=== PATIENT | male | born 1975 | race Caucasian/White ===

== ENCOUNTER → 2025-04-23 14:55 | Outpatient (CLI) | payer OTHER, SELFPAY ==
[2025-04-26 22:08] LABS: ANA Screen, IFA Negative (.)
== END ==
PROVIDERS: Family Provider Family Medicine; PCP Family Medicine; Referring Provider Dermatology; Visit Provider Dermatology
DX: L30.9 Dermatitis, unspecified (principal)
CPT/HCPCS: 36415; 85651; 86038; 86140; 86430

== ENCOUNTER 2025-08-24 20:04 | Inpatient (IN) | payer OTHER, SELFPAY ==
[2025-08-24] VITALS (12 sets, daily range): BP systolic 118–144; BP diastolic 60–83; PULSE 60–83; RESP 16–23; TEMP 36.5; O2SAT 99–100; BMI 27.8
--- NOTE | 2025-08-24 20:17 | DI.RAD.S_ITS ---
PROCEDURE: XR CHEST 1V INDICATIONS: suspected sepsis TECHNIQUE: One view of the chest was acquired. COMPARISON: None. FINDINGS: Surgical changes and devices: None. Lungs and pleura: Lungs are clear. No pleural effusions or pneumothorax. Mediastinum: Mediastinal contours appear normal. Heart size is normal. Bones and chest wall: No suspicious bony lesions. Overlying soft tissues appear unremarkable. IMPRESSION: No acute cardiopulmonary abnormality is seen. Dictated by: Lito Trujillo M.D. on 08/24/2025 at 21:00 Approved by: Lito Trujillo M.D. on 08/24/2025 at 21:00
[2025-08-24] MEDS: SODIUM CHLORIDE 0.9% 1,000 ML 1000 ML IV (20:50)
[2025-08-24 21:04] LABS: INR 1.0 (0.9-1.3); Prothrombin Time 11.8 SECONDS (9.4-12.5)
[2025-08-24 21:06] LABS: PTT Partial Thromboplastin Tim 27 SECONDS (25.1-36.5)
[2025-08-24 21:09] LABS: Lactate (Lactic Acid) 0.6 mmol/L (0.7-2.1)
[2025-08-24 21:10] LABS: Alanine Aminotransferase 115 IU/L (<50); Albumin 3.9 g/dL (3.5-5.0); Albumin Globulin Ratio 1.3 (1.0-2.8); Alkaline Phosphatase 156 U/L (38-126); Blood Urea Nitrogen 8 mg/dL (9-20); Calcium 8.4 mg/dL (8.4-10.2); Carbon Dioxide 24 mmol/L (22-32); Chloride 86 mmol/L (98-107); Estimated Glomerular Filt Rate > 60 mL/min (>60); Globulin 3.0 g/dL (1.7-4.1); Glucose 112 mg/dL (70-99); HEMOLYSIS < 15 (0-50); Lipase 48 U/L (23-300); Potassium 3.4 mmol/L (3.4-5.1); Total Protein 6.9 g/dL (6.3-8.2)
[2025-08-24 21:12] LABS: Culture Indicated Urine Cult Not Indicated
[2025-08-24 21:14] LABS: Sodium 118 mmol/L (137-145)
[2025-08-24 21:27] LABS: Procalcitonin 0.564 ng/mL (<0.5)
--- NOTE | 2025-08-24 21:31 | EKG_ITS ---
[address] [address] Test Date: 2025-08-24 Pat Name: Adonis Gil Department: Room: Gender: Male [employer]: TAMMIE : 1975 Requested By: Order Number: [id number] Reading MD: Leland Pickett Measurements Intervals [place] Rate: 64 P: 55 [place]: 164 QRS: 23 QRSD: 100 T: 17 QT: 458 QTc: 472 Interpretive Statements Normal sinus rhythm Electronically Signed On 08-26-2025 7:33:46 PST by Leland Pickett
--- NOTE | 2025-08-24 21:48 | ED.GENADULT ---
HPI - General Adult General Chief complaint: Fever Stated complaint: fever x 5 days Time Seen by Provider: 08/24/25 20:30 Source: patient Mode of arrival: Ambulatory History of Present Illness HPI narrative: 50-year-old male with 5 days duration of generalized muscle aches, temperature 103? at home measured four days ago, temp 101.8 earlier today, taking occasional Tylenol. Denies regular/heavy alcohol use. Feels increasing generalized malaise, body aches, loss of appetite. Did home COVID tests multiple times which have been negative. Denies any cough or chest pain or shortness of breath. Denies abdominal pain, nausea, vomiting, diarrhea, black stools or red stools, mucoid stools. No recent exposure to antibiotics known. No recent exposure to persons with respiratory or GI or other acute infectious illnesses. No skin rashes. No changes in medication/new medications. Had headache prior, seems improved now. No neck pain or photophobia symptoms. No joint pain or swelling symptoms. Related Data Home Medications ?Medication ?Instructions ?Recorded ?Confirmed allopurinol 100 mg tablet 100 mg PO DAILY 08/24/25 08/24/25 amlodipine 5 mg tablet 5 mg PO DAILY 08/24/25 08/24/25 lisinopril PO DAILY 08/24/25 metoprolol succinate 25 mg 25 mg PO BID 08/24/25 08/24/25 tablet,extended release 24 hr Allergies Allergy/AdvReac Type Severity Reaction Status Date / Time No Known Drug Allergies Allergy Verified 08/24/25 20:36 Patient History Social History Smoking Status: Former smoker Smoking Status: Former smoker Exam Narrative Exam Narrative: GENERAL: Well-developed patient, in mild distress. HEAD: Atraumatic. Normocephalic. EYES: Pupils equal round and reactive. Extraocular motions intact. No scleral icterus. No injection or drainage. ENT: Nose without bleeding, purulent drainage. Throat without erythema, tonsillar hypertrophy or exudate. Airway patent. NECK: Trachea midline. Non tender CARDIOVASCULAR: Regular rate and rhythm without murmurs, gallops, or rubs. RESPIRATORY: Clear to auscultation. Breath sounds equal bilaterally. No wheezes, rales, or rhonchi. GASTROINTESTINAL: Abdomen soft, non-tender, nondistended. EXTREMITIES: No edema or joint tenderness. BACK: Nontender without deformity or crepitance. No flank tenderness. NEURO: AOx3. Motor functions grossly nonfocal. SKIN: No rash or erythema of visible areas Initial Vital Signs Initial Vital Signs: Vital Signs Temperature 97.7 F 08/24/25 20:11 Pulse Rate 72 08/24/25 20:11 Respiratory Rate 16 08/24/25 20:11 Blood Pressure 144/83 H 08/24/25 20:11 Pulse Oximetry 99 08/24/25 20:11 Oxygen Delivery Method Room Air 08/24/25 20:11 Course Orders Ordered: ED Orders 08/24/25 20:17 XR chest 1V Stat EKG-12 Lead Stat RT Consult Eval and Treat NOW 08/24/25 20:35 Blood Culture Stat Complete Blood Count AUTO DIFF Stat Comprehensive Metabolic Panel Stat Lactate (Lactic Acid) Stat Lipase Stat Monotest Stat PTT Partial Thromboplastin Emre Stat Procalcitonin Stat Prothrombin Time INR Stat TSH [Thyroid Stimulating Hormone] Stat Urine Culture Stat Urine Microscopic Stat 08/24/25 20:50 Respiratory Panel (Film Array) Stat 08/24/25 21:49 Urinalysis and Microscopic Stat 08/24/25 22:10 Osmolality Urine Stat 08/24/25 22:35 Osmolality, Serum Stat 08/24/25 23:42 CT abdomen pelvis w con Stat 08/24/25 23:47 Hepatitis Acute Panel Stat 08/24/25 23:48 Acetaminophen Stat 08/24/25 23:55 Bilirubin Direct Stat 08/24/25 23:56 CMP [Comprehensive Metabolic Panel] Stat 08/25/25 00:22 Ethanol (ETOH) Stat GGT [Gamma Glutamyl Transpeptidase] Stat Ondansetron HCl (Ondansetron 4 Mg/2 Ml Inj) 4 mg IV NOW PRN PRN Reason: Nausea And Vomiting Ondansetron HCl (Ondansetron 4 Mg Odt) 4 mg PO NOW PRN PRN Reason: Nausea And Vomiting Discontinued Medications Atropine Sulfate (Atropine 1 Mg/10 Ml Syringe) 1 mg IV NOW ONE Stop: 08/25/25 01:02 PST Last Admin: 08/25/25 01:05 PST Dose: Not Given Documented By: AB Hydromorphone HCl (Hydromorphone Hcl 0.5 Mg/0.5 Ml Syringe) 0.5 mg IV NOW ONE Stop: 08/25/25 02:58 Last Admin: 08/25/25 03:00 Dose: 0.5 mg Documented By: Sodium Chloride (Normal Saline 0.9%) 1,000 mls @ 1,000 mls/hr IV BOLUS ONE Stop: 08/24/25 21:15 Last Infusion: 08/24/25 21:49 Dose: Infused Documented By: Admin: 08/24/25 20:50 Dose: 1,000 mls/hr Documented By: AB Dopamine HCl/Dextrose (Dopamine 400 Mg-D5w 250 Ml) 400 mg in 250 mls @ 17.435 mls/hr IV TITRATE ZARINA; Protocol Ketorolac Tromethamine (Ketorolac 30 Mg/Ml Vial) 15 mg IV NOW ONE Stop: 08/25/25 01:12 PST Last Admin: 08/25/25 01:17 PST Dose: 15 mg Documented By: Potassium Chloride (Potassium Chloride 20 Meq/15 Ml Udc) 40 meq PO NOW ONE Stop: 08/25/25 01:50 PST Last Admin: 08/25/25 01:09 PST Dose: 40 meq Documented By: Vital Signs Vital signs: Vital Signs - 8 hr 08/24/25 20:47 08/24/25 20:48 08/24/25 20:48 Pulse Rate 61 60 Respiratory Rate Blood Pressure 125/71 Pulse Oximetry 100 100 Oxygen Delivery Method 08/24/25 21:00 08/24/25 21:00 08/24/25 21:30 Pulse Rate 63 61 Respiratory Rate 16 23 Blood Pressure 118/60 Pulse Oximetry 99 100 Oxygen Delivery Method Room Air 08/24/25 21:30 08/24/25 21:39 08/24/25 21:39 Pulse Rate 66 Respiratory Rate 19 Blood Pressure 126/71 126/74 Pulse Oximetry 100 Oxygen Delivery Method 08/24/25 22:00 08/24/25 22:00 08/24/25 22:13 Pulse Rate 76 Respiratory Rate 18 Blood Pressure 130/67 134/74 Pulse Oximetry 100 Oxygen Delivery Method 08/24/25 22:13 08/24/25 22:30 08/24/25 22:30 Pulse Rate 79 78 Respiratory Rate 18 17 Blood Pressure 123/63 Pulse Oximetry 99 100 Oxygen Delivery Method 08/24/25 23:00 08/24/25 23:00 08/24/25 23:30 Pulse Rate 83 82 Respiratory Rate 20 Blood Pressure 122/64 Pulse Oximetry 100 100 Oxygen Delivery Method 08/24/25 23:31 08/24/25 23:31 08/25/25 00:11 Pulse Rate 82 87 Respiratory Rate Blood Pressure 122/64 Pulse Oximetry 99 99 Oxygen Delivery Method 08/25/25 00:12 08/25/25 00:12 08/25/25 00:30 Pulse Rate 88 90 Respiratory Rate 16 Blood Pressure 159/72 H Pulse Oximetry 99 98 Oxygen Delivery Method 08/25/25 00:31 08/25/25 00:31 08/25/25 01:20 PST Pulse Rate 91 H 82 Respiratory Rate 20 23 Blood Pressure 132/69 Pulse Oximetry 98 95 Oxygen Delivery Method Room Air 08/25/25 01:25 PST 08/25/25 01:30 PST Pulse Rate 82 84 Respiratory Rate 6 L 6 L Blood Pressure 122/63 117/63 Pulse Oximetry 97 97 Oxygen Delivery Method Room Air Room Air Medical Decision Making Lab Data Lab results reviewed: Yes I reviewed the patient's lab results. Lab results narrative: White blood cell count 5800, hemoglobin 12.1, platelets 91,000. Glucose 112. BUN 8 with creatinine 0.61 normal. Serum CO2 24 and potassium 3.4 normal. Sodium 118 quite low, with no comparison studies. Total bilirubin 4.0, direct bilirubin pending, alkaline phosphatase 156, AST 94, ALT 115. Lipase 48 normal. Urine dip negative. [place] screen negative. Hepatitis acute viral panel pending (send out). Lactate 0.6 not elevated. Procalcitonin 0.56 elevated. TSH normal. Urine osmolality pending. Serum osmolality pending. Respiratory pathogens panel negative. 08/24/25 20:35 08/25/25 00:22 Labs: Lab Results 08/24/25 08/24/25 08/25/25 Range/Units 20:35 20:50 00:22 WBC 5.7 (4.5-11.0) X10^3/uL RBC 4.00 L (4.5-5.9) X10^6/uL Hgb 12.1 L (13.5-17.5) g/dL Hct 34.1 L (41-53) % MCV 85.5 (80-100) fL MCH 30.3 (26-34) PG MCHC 35.5 (30-36) % RDW 13.2 (11.6-14.8) % Plt Count 91 L (150-400) X10^3/uL Neut % (Auto) 78.6 H (50-75) % Lymph % (Auto) 7.3 L (25-40) % [place] % (Auto) 12.8 (3-14) % Eos % (Auto) 0.9 L (2-4) % Baso % (Auto) 0.4 (0-2) % Neut # (Auto) 4500 (7118-1332) /uL Lymph # (Auto) 400 L (3795-2355) /uL [place] # (Auto) 700 (0-900) /uL Eos # (Auto) 0 (0-450) /uL Baso # (Auto) 0 (0-100) /uL PT 11.8 (9.4-12.5) SECONDS INR 1.0 (0.9-1.3) APTT 27 (25.1-36.5) SECONDS Sodium 118 L* 128 L D (137-145) mmol/L Potassium 3.4 3.1 L (3.4-5.1) mmol/L Chloride 86 L 95 L (98-107) mmol/L Carbon Dioxide 24 23 (22-32) mmol/L BUN 8 L 7 L (9-20) mg/dL Creatinine 0.61 L 0.61 L (0.66-1.25) mg/dL Estimated GFR > 60 > 60 (>60) mL/min BUN/Creatinine Ratio 13.1 11.5 (6-22) Glucose 112 H 112 H (70-99) mg/dL Serum Osmolality Cancelled Lactate 0.6 L (0.7-2.1) mmol/L Calcium 8.4 8.3 L (8.4-10.2) mg/dL Total Bilirubin 4.0 H 4.5 H (0.2-1.3) mg/dL Direct Bilirubin 3.2 H (0.0-0.4) mg/dL GGT 228 H (15-73) U/L AST 94 H 80 H (17-59) IU/L ALT 115 H 107 H (<50) IU/L Alkaline Phosphatase 156 H 160 H (38-126) U/L Total Protein 6.9 6.6 (6.3-8.2) g/dL Albumin 3.9 3.7 (3.5-5.0) g/dL Globulin 3.0 2.9 (1.7-4.1) g/dL Albumin/Globulin Ratio 1.3 1.3 (1.0-2.8) Lipase 48 (23-300) U/L Procalcitonin 0.564 H (<0.5) ng/mL TSH 1.08 (0.47-4.68) uIU/mL Urine RBC 0-1/hpf (0-5/HPF) Urine WBC None seen (0-5/HPF) Ur Squamous Epith Cells None seen (0-5/HPF) Urine Bacteria None seen (None) Ur Culture Indicated? Cult not indicated Vol Urine Centrifuged 10ml (spun) Acetaminophen < 10 (10-30) ug/mL Ethyl Alcohol < 10 (<10) mg/dL Chlamy pneumoniae PCR Not detected (Not Detect) Adenovirus (PCR) Not detected (Not Detect) B. pertussis DNA (PCR) Not detected (Not Detect) B.parapertussis DNA PCR Not detected (Not Detecte) Coronavirus OC43 (PCR) Not detected (Not Detect) Coronavirus HKU1 (PCR) Not detected (Not Detect) Coronavirus 229E (PCR) Not detected (Not Detect) SARS-CoV-2 (PCR) Not detected (Not Detecte) Coronavirus NL63 (PCR) Not detected (Not Detect) Monoscreen Negative (Negative) Human Metapneumovir PCR Not detected (Not Detect) Influenza Type A (PCR) Not detected (Not Detect) Influenza Type B (PCR) Not detected (Not Detect) M. pneumoniae (PCR) Not detected (Not Detect) Parainfluenza 1 (PCR) Not detected (Not Detect) Parainfluenza 2 (PCR) Not detected (Not Detect) Parainfluenza 3 (PCR) Not detected (Not Detect) Parainfluenza 4 (PCR) Not detected (Not Detect) RSV (PCR) Not detected (Not Detect) Entero/Rhino (PCR) Not detected (Not Detect) Urine Dip Bedside Urine Glucose Negative Bedside Urine Bilirubin - Negative Bedside Urine Ketone - Negative Urine Specific [place] 1.000 Bedside Urine Occult Blood +/- Bedside Urine pH 6.0 Bedside Urine Protein - Negative Bedside Urine Urobilinogen - Negative Bedside Urine Nitrite - Negative Bedside Urine Leukocytes - Negative Esterase Point of care testing: Urine Dip Bedside Urine Glucose Negative Bedside Urine Bilirubin - Negative Bedside Urine Ketone - Negative Urine Specific [place] 1.000 Bedside Urine Occult Blood +/- Bedside Urine pH 6.0 Bedside Urine Protein - Negative Bedside Urine Urobilinogen - Negative Bedside Urine Nitrite - Negative Bedside Urine Leukocytes - Negative Esterase Imaging Data Chest x-ray: Radiologist's Impression: [address] [address] XRay Report Signed Patient: Adonis Gil MR#: [id number] : 1975 Acct:[id number] Age/Sex: 50 / M Date of Service: 08/24/25 Loc: ED Accession Number: [id number] Procedure: XR chest 1V Ordering Provider: Phan Marin MD PROCEDURE: XR CHEST 1V INDICATIONS: suspected sepsis TECHNIQUE: One view of the chest was acquired. COMPARISON: None. FINDINGS: Surgical changes and devices: None. Lungs and pleura: Lungs are clear. No pleural effusions or pneumothorax. Mediastinum: Mediastinal contours appear normal. Heart size is normal. Bones and chest wall: No suspicious bony lesions. Overlying soft tissues appear unremarkable. IMPRESSION: No acute cardiopulmonary abnormality is seen. Dictated by: Lito Trujillo M.D. on 08/24/2025 at 21:00 Approved by: Lito Trujillo M.D. on 08/24/2025 at 21:00 CT scan - head: Radiologist's Impression: [address] [address] [address] Scan Report Signed Patient: Adonis Gil MR#: [id number] : 1975 Acct:[id number] Age/Sex: 50 / M Date of Service: 08/24/25 Loc: ED Accession Number: [id number] Procedure: CT abdomen pelvis w con Ordering Provider: Phan Marin MD PROCEDURE: CT ABDOMEN PELVIS W CON INDICATIONS: fever, inc LFTs TECHNIQUE: After the administration of intravenous contrast, axial sections acquired from the lung bases to the pubic symphysis. Coronal and sagittal reformats were performed. For radiation dose reduction, the following was used: automated exposure control, adjustment of mA and/or kV according to patient size. COMPARISON: None. FINDINGS: Image quality: Diagnostic. Lower Chest: No significant findings. ABDOMEN: Liver: No solid mass. Gallbladder: Partially contracted. No stone. Biliary ducts: No biliary dilation. Pancreas: No ductal dilation. Spleen: Splenomegaly Adrenal Glands: No adrenal nodules. Kidneys and Ureters: No hydronephrosis. No solid mass. No complex renal cystic lesion which requires follow up. Stomach and Bowel: Normal colonic caliber, without significant wall thickening. Normal appendix. Peritoneum: Mild periportal edema. No free fluid. No free air. Ventral Wall: No significant ventral hernia. Abdominal Nodes: No retroperitoneal or mesenteric adenopathy by size criteria. Vessels: Aorta and inferior vena cava are normal in size. PELVIS: Pelvic Organs: Unremarkable. Bladder: No bladder wall thickening, accounting for underdistention. Pelvic Nodes: No enlarged lymph nodes. Miscellaneous: No inguinal hernias are seen. Bones: No aggressive osseous abnormality. IMPRESSION: Mild periportal edema, correlate for possible acute hepatitis. No cholelithiasis or bile duct dilatation. Dictated by: Lito Trujillo M.D. on 08/25/2025 at 0:17 Approved by: Lito Trujillo M.D. on 08/25/2025 at 0:20 MDM Narrative Medical decision making narrative: 50-year-old male with 5 days duration diffuse myalgias, home COVID test negative, no cough, no abdominal pain, felt feverish a few days ago, low-grade fever earlier today, taking Tylenol but on occasion. Denies alcohol use recent. Denies known liver problems. No new medications. No known exposure to persons with similar symptoms. Labs pending. EKG shows normal sinus rhythm with rate of 64, no obvious ischemic changes, normal intervals. Chest x-ray, no acute changes. See radiology report. Initial lab data: White blood cell count 5800, hemoglobin 12.1, platelets 91,000. Glucose 112. BUN 8 with creatinine 0.61 normal. Serum CO2 24 and potassium 3.4 normal. Sodium 118 quite low, with no comparison studies. Total bilirubin 4.0, direct bilirubin pending, alkaline phosphatase 156, AST 94, ALT 115. INR 1.0 normal. Lipase 48 normal. Urine dip negative. [place] screen negative. Hepatitis acute viral panel pending (send out). Lactate 0.6 not elevated. Procalcitonin 0.56 elevated. TSH normal. Urine osmolality pending. Serum osmolality pending. Respiratory pathogens panel negative. No previous comparison studies for sodium, will repeat lab draw CMP to recheck the sodium level case it might be spurious, no lipemic specimen mentioned, no hyperglycemia. We will repeat liver functions for trend. Hepatitis viral panel send out pending. Monospot negative. CT abdomen and pelvis imaging ordered. 0015, case discussed with hospitalist Dr. Damico, who does not feel comfortable managing hyponatremia remotely here with sodium of 118, no seizure activity, requests transfer to higher level of care. We will further workup elevated liver functions. Consider consultation with tertiary center and might have Nephrology and/or hepatology/GI consultation available. CT report pending. CT abdomen and pelvis. IMPRESSION: Mild periportal edema, correlate for possible acute hepatitis. No cholelithiasis or bile duct dilatation. See radiology report. Repeat CMP. Liver functions similarly elevated, slight further increased T bili 4.5, direct component 3.2. Similar range mild elevations AST, ALT, alkaline phosphatase. Hepatitis virology panel send out study pending. Monospot, Acetaminophen, ethanol negative. Repeat sodium 128 not significantly decreased, first value 118 was likely spurious. Will consult hospitalist for updated disposition plan. 0230, discussed with hospitalist Dr Damico, would like hepatology consult. 0300, case discussed with [facility] hepatology Dr. Cardenas, who feels patient should be admitted for further monitoring, can be admitted here, she is on-call over the weekend can be reconsulted if needed. For now we would recommend holding any empiric antibiotics, suspect this is viral illness, would repeat CBC CMP INR later this morning, can reconsult as needed. She also would recommend ultrasound right upper quadrant abdomen further imaging in the morning as well. 0315, case discussed again with hospitalist Dr. Damico, who accepts patient for admission Critical Care Time Critical Care Time Critical Care Time: Yes Total Critical Care Time: 35 Attestation: The high probability of a clinically significant, sudden or life threatening deterioration of the [hepatic, gastrointestinal, metabolic] system(s) required my full and direct attention, intervention and personal management. The aggregate critical care time was [35] minutes. This time is in addition to time spent performing reported procedures but includes the following: [x] Data Review and interpretation [x] Patient assessment and monitoring of vital signs [x] Documentation [x] Medication orders and management Discharge Plan Departure Patient Disposition: Admitted as Observation Clinical Impression: Acute hepatitis, Hyponatremia Admit Date/Time: 08/25/25 02:13 Admit Provider: Segundo Damico
[2025-08-24 22:11] LABS: Add Manual Diff / Slide Review NO; Hematocrit 34.1 % (41-53); Hemoglobin 12.1 g/dL (13.5-17.5); Lymphocytes Absolute Auto 400 /uL (1100-4500); Mean Corpuscular HGB Conc 35.5 % (30-36); Mean Corpuscular Hemoglobin 30.3 PG (26-34); Mean Corpuscular Volume 85.5 fL (80-100); Platelet Count 91 X10^3/uL (150-400)
[2025-08-24 22:22] LABS: Thyroid Stimulating Hormone 1.08 uIU/mL (0.47-4.68)
[2025-08-24 23:02] LABS: Coronavirus NL 63 Not Detected (Not Detect); SARS- CoV-2 Not Detected (Not Detecte)
--- NOTE | 2025-08-24 23:42 | DI.CT.S_ITS ---
PROCEDURE: CT ABDOMEN PELVIS W CON INDICATIONS: fever, inc LFTs TECHNIQUE: After the administration of intravenous contrast, axial sections acquired from the lung bases to the pubic symphysis. Coronal and sagittal reformats were performed. For radiation dose reduction, the following was used: automated exposure control, adjustment of mA and/or kV according to patient size. COMPARISON: None. FINDINGS: Image quality: Diagnostic. Lower Chest: No significant findings. ABDOMEN: Liver: No solid mass. Gallbladder: Partially contracted. No stone. Biliary ducts: No biliary dilation. Pancreas: No ductal dilation. Spleen: Splenomegaly Adrenal Glands: No adrenal nodules. Kidneys and Ureters: No hydronephrosis. No solid mass. No complex renal cystic lesion which requires follow up. Stomach and Bowel: Normal colonic caliber, without significant wall thickening. Normal appendix. Peritoneum: Mild periportal edema. No free fluid. No free air. Ventral Wall: No significant ventral hernia. Abdominal Nodes: No retroperitoneal or mesenteric adenopathy by size criteria. Vessels: Aorta and inferior vena cava are normal in size. PELVIS: Pelvic Organs: Unremarkable. Bladder: No bladder wall thickening, accounting for underdistention. Pelvic Nodes: No enlarged lymph nodes. Miscellaneous: No inguinal hernias are seen. Bones: No aggressive osseous abnormality. IMPRESSION: Mild periportal edema, correlate for possible acute hepatitis. No cholelithiasis or bile duct dilatation. Dictated by: Lito Trujillo M.D. on 08/25/2025 at 0:17 Approved by: Lito Trujillo M.D. on 08/25/2025 at 0:20
[2025-08-25] VITALS (19 sets, daily range): BP systolic 106–159; BP diastolic 53–74; PULSE 67–96; RESP 6–23; TEMP 36.8–37.7; O2SAT 95–100; BMI 27.8
[2025-08-25] MEDS: POTASSIUM CHLORIDE 20 MEQ/15 ML UDC 40 MEQ PO (01:09)
[2025-08-25] MEDS: KETOROLAC 30 MG/ML VIAL 15 MG IV (01:17)
[2025-08-25 01:31] LABS: Ethanol (ETOH) < 10 mg/dL (<10)
[2025-08-25 01:45] LABS: Alanine Aminotransferase 107 IU/L (<50); Albumin 3.7 g/dL (3.5-5.0); Albumin Globulin Ratio 1.3 (1.0-2.8); Alkaline Phosphatase 160 U/L (38-126); Blood Urea Nitrogen 7 mg/dL (9-20); Calcium 8.3 mg/dL (8.4-10.2); Carbon Dioxide 23 mmol/L (22-32); Chloride 95 mmol/L (98-107); Estimated Glomerular Filt Rate > 60 mL/min (>60); Gamma Glutamyl Transpeptidase 228 U/L (15-73); Globulin 2.9 g/dL (1.7-4.1); Glucose 112 mg/dL (70-99); HEMOLYSIS < 15 (0-50); Potassium 3.1 mmol/L (3.4-5.1); Sodium 128 mmol/L (137-145); Total Protein 6.6 g/dL (6.3-8.2)
[2025-08-25 01:46] LABS: Acetaminophen < 10 ug/mL (10-30)
--- NOTE | 2025-08-25 02:28 | PM.HP.1 ---
History of Present Illness History of Present Illness Chief complaint: fever x 5 days Narrative: 50M with PMH of gout, HTN presents with 5 days muscle aches, Tmax 103F, malaise, appetite loss. No abdominal pain, nausea, vomiting, diarrheae, bleeding. No recent Abx. Negative COVID tests. No chest pain or dyspnea. No new or changed meds. No known sick contacts. No recent travel. No PMH except unexplained, self-resolved ATN in his 20s that required hospitalization and kidney biopsy. Resolved headche. No neck pain. Unremarkable EKG. Sodium 128 (initial spurious value of 118), K mildly low. But elevated Alk Phos, AST, ALT, T bili. Normal lactate. Mildly elevated procalcitonin. ED attending discussed with hepatology inpatient monitoring but no need for transfer at this time. [facility] Social History household members: spouse Smoking Status: Former smoker Meds Home Medications and Allergies Home Medications ?Medication ?Instructions ?Recorded ?Confirmed ?Type allopurinol 100 mg tablet 100 mg PO DAILY 08/24/25 08/24/25 History amlodipine 5 mg tablet 5 mg PO DAILY 08/24/25 08/24/25 History lisinopril PO DAILY 08/24/25 History metoprolol succinate 25 mg 25 mg PO BID 08/24/25 08/24/25 History tablet,extended release 24 hr Allergies Allergy/AdvReac Type Severity Reaction Status Date / Time No Known Drug Allergies Allergy Verified 08/24/25 20:36 Review of Systems Review of Systems Narrative: As per HPI. Rest of 10-system review negative. Exam Vital Signs (past 8 hours): - 08/24/25 20:11 08/24/25 20:47 08/24/25 20:48 Temperature 97.7 F Pulse Rate 72 61 60 Respiratory Rate 16 Blood Pressure 144/83 H Pulse Oximetry 99 100 100 Oxygen Delivery Method Room Air 08/24/25 20:48 08/24/25 21:00 08/24/25 21:00 Temperature Pulse Rate 63 Respiratory Rate 16 Blood Pressure 125/71 118/60 Pulse Oximetry 99 Oxygen Delivery Method Room Air 08/24/25 21:30 08/24/25 21:30 08/24/25 21:39 Temperature Pulse Rate 61 66 Respiratory Rate 23 19 Blood Pressure 126/71 Pulse Oximetry 100 100 Oxygen Delivery Method 08/24/25 21:39 08/24/25 22:00 08/24/25 22:00 Temperature Pulse Rate 76 Respiratory Rate 18 Blood Pressure 126/74 130/67 Pulse Oximetry 100 Oxygen Delivery Method 08/24/25 22:13 08/24/25 22:13 08/24/25 22:30 Temperature Pulse Rate 79 Respiratory Rate 18 Blood Pressure 134/74 123/63 Pulse Oximetry 99 Oxygen Delivery Method 08/24/25 22:30 08/24/25 23:00 08/24/25 23:00 Temperature Pulse Rate 78 83 Respiratory Rate 17 20 Blood Pressure 122/64 Pulse Oximetry 100 100 Oxygen Delivery Method 08/24/25 23:30 08/24/25 23:31 08/24/25 23:31 Temperature Pulse Rate 82 82 Respiratory Rate Blood Pressure 122/64 Pulse Oximetry 100 99 Oxygen Delivery Method 08/25/25 00:11 08/25/25 00:12 08/25/25 00:12 Temperature Pulse Rate 87 88 Respiratory Rate 16 Blood Pressure 159/72 H Pulse Oximetry 99 99 Oxygen Delivery Method 08/25/25 00:30 08/25/25 00:31 08/25/25 00:31 Temperature Pulse Rate 90 91 H Respiratory Rate 20 Blood Pressure 132/69 Pulse Oximetry 98 98 Oxygen Delivery Method 08/25/25 01:20 PST 08/25/25 01:25 PST 08/25/25 01:30 PST Temperature Pulse Rate 82 82 84 Respiratory Rate 23 6 L 6 L Blood Pressure 122/63 117/63 Pulse Oximetry 95 97 97 Oxygen Delivery Method Room Air Room Air Room Air Oxygen Delivery Method Room Air Narrative Exam Narrative: Patient was evaluated entirely through 2-way audio/video telemedicine with RN assistance in exam. Physician was not present at beside in person at any time for this evaluation. Consent for telemedicine obtained from patient. Const Other: awake, alert, no acute distress. HENMT Other: normocephalic, atraumatic, anicteric sclereae, neck supple Resp Other: normal breathing pattern, no wheeze. no hypoxia requiring supplemental oxygen Cardio Other: RRR GI Other: S/NT/ND/+BS Extrem Other: no edema Objective Imaging CT scan - abdomen: Radiologist's impression: Mild periportal edema, correlate for possible acute hepatitis. No cholelithiasis or bile duct dilatation. Labs 08/24/25 20:35 08/25/25 00:22 Labs: Laboratory Results - last 24 hr 08/24/25 08/24/25 08/25/25 20:35 20:50 00:22 WBC 5.7 RBC 4.00 L Hgb 12.1 L Hct 34.1 L MCV 85.5 MCH 30.3 MCHC 35.5 RDW 13.2 Plt Count 91 L Neut % (Auto) 78.6 H Lymph % (Auto) 7.3 L [place] % (Auto) 12.8 Eos % (Auto) 0.9 L Baso % (Auto) 0.4 Neut # (Auto) 4500 Lymph # (Auto) 400 L [place] # (Auto) 700 Eos # (Auto) 0 Baso # (Auto) 0 PT 11.8 INR 1.0 APTT 27 Sodium 118 L* 128 L D Potassium 3.4 3.1 L Chloride 86 L 95 L Carbon Dioxide 24 23 BUN 8 L 7 L Creatinine 0.61 L 0.61 L Estimated GFR > 60 > 60 BUN/Creatinine Ratio 13.1 11.5 Glucose 112 H 112 H Serum Osmolality Cancelled Lactate 0.6 L Calcium 8.4 8.3 L Total Bilirubin 4.0 H 4.5 H Direct Bilirubin 3.2 H GGT 228 H AST 94 H 80 H ALT 115 H 107 H Alkaline Phosphatase 156 H 160 H Total Protein 6.9 6.6 Albumin 3.9 3.7 Globulin 3.0 2.9 Albumin/Globulin Ratio 1.3 1.3 Lipase 48 Procalcitonin 0.564 H TSH 1.08 Urine RBC 0-1/hpf Urine WBC None seen Ur Squamous Epith Cells None seen Urine Bacteria None seen Ur Culture Indicated? Cult not indicated Vol Urine Centrifuged 10ml (spun) Acetaminophen < 10 Ethyl Alcohol < 10 Chlamy pneumoniae PCR Not detected Adenovirus (PCR) Not detected B. pertussis DNA (PCR) Not detected B.parapertussis DNA PCR Not detected Coronavirus OC43 (PCR) Not detected Coronavirus HKU1 (PCR) Not detected Coronavirus 229E (PCR) Not detected SARS-CoV-2 (PCR) Not detected Coronavirus NL63 (PCR) Not detected Monoscreen Negative Human Metapneumovir PCR Not detected Influenza Type A (PCR) Not detected Influenza Type B (PCR) Not detected M. pneumoniae (PCR) Not detected Parainfluenza 1 (PCR) Not detected Parainfluenza 2 (PCR) Not detected Parainfluenza 3 (PCR) Not detected Parainfluenza 4 (PCR) Not detected RSV (PCR) Not detected Entero/Rhino (PCR) Not detected Assessment & Plan Assessment and plan (1) Hyponatremia: Status: Acute (2) Acute hepatitis: Status: Acute Assessment & Plan narrative: 50M with no significant PMH presents with acute illnesses 1. Acute hepatitis with elevated bilirubin, alkaline phosphatase, AST, ALT, POA 2. Acute hyponatremia, POA 3. HTN 4. Thrombocytopenia, POA 5. Hypokalemia, treated, POA Plan: 1. Admit to inpatient, telemetry 2. NSS @ 75 ml/h for low Na 3. CMP, CBC, Mg at 9a 4. follow up viral hepatitis panel, blood cultures 5. Hold off on antibiotics for now 6. Cardiac low fat diet Code: Hot Repairman-Based Coding :: [TOTAL MINUTES] spent with patient and on the chart (including review of chart, obtaining history, exam, reviewing outside data, placing orders, documenting exam and treatment plan, and counseling patient) on [DATE].
[2025-08-25 09:11] LABS: Add Manual Diff / Slide Review NO; Hematocrit 35.9 % (41-53); Hemoglobin 12.7 g/dL (13.5-17.5); Lymphocytes Absolute Auto 200 /uL (1100-4500); Mean Corpuscular HGB Conc 35.5 % (30-36); Mean Corpuscular Hemoglobin 30.6 PG (26-34); Mean Corpuscular Volume 86.3 fL (80-100); Platelet Count 95 X10^3/uL (150-400)
[2025-08-25 09:18] LABS: INR 1.0 (0.9-1.3); Prothrombin Time 10.8 SECONDS (9.4-12.5)
[2025-08-25 09:23] LABS: Alanine Aminotransferase 107 IU/L (<50); Albumin 3.8 g/dL (3.5-5.0); Albumin Globulin Ratio 1.3 (1.0-2.8); Alkaline Phosphatase 152 U/L (38-126); Blood Urea Nitrogen 6 mg/dL (9-20); Calcium 8.5 mg/dL (8.4-10.2); Carbon Dioxide 25 mmol/L (22-32); Chloride 99 mmol/L (98-107); Estimated Glomerular Filt Rate > 60 mL/min (>60); Globulin 2.9 g/dL (1.7-4.1); Glucose 156 mg/dL (70-99); HEMOLYSIS < 15 (0-50); Magnesium 2.1 mg/dL (1.6-2.3); Potassium 4.0 mmol/L (3.4-5.1); Sodium 131 mmol/L (137-145); Total Protein 6.7 g/dL (6.3-8.2)
[2025-08-25 09:39] LABS: PTT Partial Thromboplastin Tim 27 SECONDS (25.1-36.5)
[2025-08-25] MEDS: SODIUM CHLORIDE 0.9% 1,000 ML 75 ML IV (11:17)
[2025-08-25] MEDS: IBUPROFEN 400 MG TABLET PO (12:07)
--- NOTE | 2025-08-25 13:25 | P.HP_ITS ---
History of Present Illness History of Present Illness Date Patient Seen: 08/25/25 Chief complaint: fever x 5 days Narrative: Chief complaint: Fevers rigors chills malaise elevated bilirubin peaked to 4.5 mild transaminase elevation History of present illness: 08/25: (per nighttime hospitalist) 50M with PMH of gout, HTN presents with 5 days muscle aches, Tmax 103F, malaise, appetite loss. No abdominal pain, nausea, vomiting, diarrheae, bleeding. No recent Abx. Negative COVID tests. No chest pain or dyspnea. No new or changed meds. No known sick contacts. No recent travel. No PMH except unexplained, self-resolved ATN in his 20s that required hospitalization and kidney biopsy. Resolved headche. No neck pain. Unremarkable EKG. Sodium 128 (initial spurious value of 118), K mildly low. But elevated Alk Phos, AST, ALT, T bili. Normal lactate. Mildly elevated procalcitonin. ED attending discussed with hepatology inpatient monitoring but no need for transfer at this time.. Patient was vaccinated remotely for hepatitis a and B in the 90s CT of the abdomen and pelvis negative for biliary obstruction or dilation there is mild periportal edema edema consistent with mild acute hepatitis Peak bilirubin 4.5 de-escalated to 4.1 Respiratory viral panel negative Hospital course: 08/25: Patient actually started feeling better in the morning but then in the early afternoon by 2:00 p.m. patient has severe headache worsened by light examination patient does not have nuchal rigidity or meningismus Review of systems: No cough shortness for breath nausea vomiting or diarrhea No chest pain palpitations No urinary symptom No paresthesia paresis Loss of conscious Physical exam: Middle-aged male appearing well-developed no acute distress HEENT unremarkable Neck no JVD Heart rate and rhythm regular Lungs clear Abdomen Assessment and plan: Viral syndrome with elevation of bilirubin and transaminases * Supportive care * There may be an element of viral meningitis as well as hepatitis * Await serologies for hepatitis AB and C, however the presentation is not typical * Control of pain * IV hydration to correcta hyponatremia History of gout: * Continue allopurinol * Colchicine if needed for flare Hypertension: * Hold losartan due to hyponatremia DVT prophylaxis: * Not indicated patient is ambulatory Code status: * Full code Disposition: * Inpatient expect to 3 days hospitalization 55 minutes were involved in the management of this patient including [id number] evaluation physical examination review of records review of objective laboratory and imaging findings and discussion with patient and family [facility] Social History household members: spouse Smoking Status: Former smoker Meds Home Medications and Allergies Home Medications ?Medication ?Instructions ?Recorded ?Confirmed ?Type allopurinol 100 mg tablet 100 mg PO DAILY 08/24/2511/17 History amlodipine 5 mg tablet 5 mg PO DAILY 08/24/2508/24 History lisinopril PO DAILY 08/24/25 History metoprolol succinate 25 mg 25 mg PO BID 08/24/2508/24 History tablet,extended release 24 hr Allergies Allergy/AdvReac Type Severity Reaction Status Date / Time No Known Drug Allergies Allergy Verified 08/24/25 20:36 Exam Vital Signs (past 8 hours): - 08/25/25 07:50 08/25/25 11:11 Temperature 98.9 F 98.6 F Pulse Rate 74 87 Respiratory Rate 16 18 Blood Pressure 113/64 123/72 Pulse Oximetry 99 100 Oxygen Delivery Method Room Air Oxygen Flow Rate 0 Objective Labs 08/25/25 09:00 08/25/25 09:00 Labs: Laboratory Results - last 24 hr 08/24/25 08/24/25 08/25/25 20:35 20:50 00:22 WBC 5.7 RBC 4.00 L Hgb 12.1 L Hct 34.1 L MCV 85.5 MCH 30.3 MCHC 35.5 RDW 13.2 Plt Count 91 L Neut % (Auto) 78.6 H Lymph % (Auto) 7.3 L [place] % (Auto) 12.8 Eos % (Auto) 0.9 L Baso % (Auto) 0.4 Neut # (Auto) 4500 Lymph # (Auto) 400 L [place] # (Auto) 700 Eos # (Auto) 0 Baso # (Auto) 0 PT 11.8 INR 1.0 APTT 27 Sodium 118 L* 128 L D Potassium 3.4 3.1 L Chloride 86 L 95 L Carbon Dioxide 24 23 BUN 8 L 7 L Creatinine 0.61 L 0.61 L Estimated GFR > 60 > 60 BUN/Creatinine Ratio 13.1 11.5 Glucose 112 H 112 H Serum Osmolality Cancelled Lactate 0.6 L Calcium 8.4 8.3 L Magnesium Total Bilirubin 4.0 H 4.5 H Direct Bilirubin 3.2 H GGT 228 H AST 94 H 80 H ALT 115 H 107 H Alkaline Phosphatase 156 H 160 H Total Protein 6.9 6.6 Albumin 3.9 3.7 Globulin 3.0 2.9 Albumin/Globulin Ratio 1.3 1.3 Lipase 48 Procalcitonin 0.564 H TSH 1.08 Urine RBC 0-1/hpf Urine WBC None seen Ur Squamous Epith Cells None seen Urine Bacteria None seen Ur Culture Indicated? Cult not indicated Vol Urine Centrifuged 10ml (spun) Acetaminophen < 10 Ethyl Alcohol < 10 Chlamy pneumoniae PCR Not detected Adenovirus (PCR) Not detected B. pertussis DNA (PCR) Not detected B.parapertussis DNA PCR Not detected Coronavirus OC43 (PCR) Not detected Coronavirus HKU1 (PCR) Not detected Coronavirus 229E (PCR) Not detected SARS-CoV-2 (PCR) Not detected Coronavirus NL63 (PCR) Not detected Monoscreen Negative Human Metapneumovir PCR Not detected Influenza Type A (PCR) Not detected Influenza Type B (PCR) Not detected M. pneumoniae (PCR) Not detected Parainfluenza 1 (PCR) Not detected Parainfluenza 2 (PCR) Not detected Parainfluenza 3 (PCR) Not detected Parainfluenza 4 (PCR) Not detected RSV (PCR) Not detected Entero/Rhino (PCR) Not detected 08/25/25 09:00 WBC 4.4 L RBC 4.16 L Hgb 12.7 L Hct 35.9 L MCV 86.3 MCH 30.6 MCHC 35.5 RDW 13.3 Plt Count 95 L Neut % (Auto) 85.2 H Lymph % (Auto) 4.9 L [place] % (Auto) 9.1 Eos % (Auto) 0.5 L Baso % (Auto) 0.3 Neut # (Auto) 3800 Lymph # (Auto) 200 L [place] # (Auto) 400 Eos # (Auto) 0 Baso # (Auto) 0 PT 10.8 INR 1.0 APTT 27 Sodium 131 L Potassium 4.0 Chloride 99 Carbon Dioxide 25 BUN 6 L Creatinine 0.61 L Estimated GFR > 60 BUN/Creatinine Ratio 9.8 Glucose 156 H Serum Osmolality Lactate Calcium 8.5 Magnesium 2.1 Total Bilirubin 4.1 H Direct Bilirubin GGT AST 77 H ALT 107 H Alkaline Phosphatase 152 H Total Protein 6.7 Albumin 3.8 Globulin 2.9 Albumin/Globulin Ratio 1.3 Lipase Procalcitonin TSH Urine RBC Urine WBC Ur Squamous Epith Cells Urine Bacteria Ur Culture Indicated? Vol Urine Centrifuged Acetaminophen Ethyl Alcohol Chlamy pneumoniae PCR Adenovirus (PCR) B. pertussis DNA (PCR) B.parapertussis DNA PCR Coronavirus OC43 (PCR) Coronavirus HKU1 (PCR) Coronavirus 229E (PCR) SARS-CoV-2 (PCR) Coronavirus NL63 (PCR) Monoscreen Human Metapneumovir PCR Influenza Type A (PCR) Influenza Type B (PCR) M. pneumoniae (PCR) Parainfluenza 1 (PCR) Parainfluenza 2 (PCR) Parainfluenza 3 (PCR) Parainfluenza 4 (PCR) RSV (PCR) Entero/Rhino (PCR) Assessment & Plan Time-Based Coding :: [TOTAL MINUTES] spent with patient and on the chart (including review of chart, obtaining history, exam, reviewing outside data, placing orders, documenting exam and treatment plan, and counseling patient) on [DATE]. Quality VTE Deep Vein Thrombosis/Pulmonary Embolism Present on Admission: No
--- NOTE | 2025-08-25 14:11 | PC.NURSE ---
Patients sclera slightly yellow, patient complained of a headache and he was given ibuprofen, will check on him shortly.
[2025-08-25] MEDS: ONDANSETRON 4 MG/2 ML INJ IV (14:29)
--- NOTE | 2025-08-25 15:12 | CM.DANOTE ---
Patient is a 50 yo male who was admitted INPT Status on 08/25/25 today for Increased Bilirubin, possible viral hepatitis. Pt has [employer] for insurance and his PCP is Kolby Bello. EMR was reviewed. Per MD, pt with hx of gout and admitted for hyponatremia and acute hepatitis. Viral Hepatitis panel pending. Per MD, pt's sister is a Hospitalist in [place] and his dad is a retired MD. Per RN, pt has been SBA in room and independent. Pt lives in [place] with spouse and is independent and works and drives at baseline. No hx of prior admissions. SW to follow in AM after pending panel results determined to confirm if safe d/c home and any further identified discharge planning needs. TREE Sheikh Discharge Planning/Care Management CM Discharge Assessment Start: 08/25/25 03:35 Freq: Status: Active Protocol: Document 08/25/25 15:11 BF (Rec: 08/25/25 15:12 BF Desktop) Discharge Planning Assessment Assigned Discharge TREE Garcia Broadcast Supervisor Provider Kolby Bello Insurance [place] DPOA/Assigned none Designee Name Advance Directives? No Advance Directives No on File History Provided By Patient,Medical Record Has Patient been No admitted in last 30 days? Prior Living House Arrangements Household Members spouse Type of Drives own vehicle transporation used prior to admit Independent with ADL Yes 's Is patient alert and Yes oriented? Barriers to No Discharge Discharge Plan Home Transportation Spouse likely to transport at d/c Arrangement Referrals Initiated None needed Additional Comment Pending labs and progress Review Status In Process Please Provide Date 08/25/25 Initial DC Assessment Was Performed Next Review Type Continued Stay Review
[2025-08-26 03:00] VITALS: BP 119/70; PULSE 90; RESP 20; TEMP 38.4; O2SAT 97
[2025-08-26 05:36] LABS: Hepatitis A Antibody IgM Negative (Negative); Hepatitis B Core Antibody IgM Negative (Negative); Hepatitis C Antibody Non Reactive (Non Reactive)
[2025-08-26 06:02] LABS: Alanine Aminotransferase 115 IU/L (<50); Albumin 3.4 g/dL (3.5-5.0); Albumin Globulin Ratio 1.1 (1.0-2.8); Alkaline Phosphatase 164 U/L (38-126); Blood Urea Nitrogen 3 mg/dL (9-20); Calcium 8.3 mg/dL (8.4-10.2); Carbon Dioxide 24 mmol/L (22-32); Chloride 102 mmol/L (98-107); Estimated Glomerular Filt Rate > 60 mL/min (>60); Globulin 3.0 g/dL (1.7-4.1); Glucose 135 mg/dL (70-99); HEMOLYSIS < 15 (0-50); Potassium 3.7 mmol/L (3.4-5.1); Sodium 133 mmol/L (137-145); Total Protein 6.4 g/dL (6.3-8.2)
--- NOTE | 2025-08-26 07:19 | P.PN_ITS ---
Subjective Subjective Date Patient Seen: 08/26/25 Interval history: Fevers rigors chills malaise elevated bilirubin peaked to 4.5 mild transaminase elevation History of present illness: 08/25: (per nighttime hospitalist) 50M with PMH of gout, HTN presents with 5 days muscle aches, Tmax 103F, malaise, appetite loss. No abdominal pain, nausea, vomiting, diarrheae, bleeding. No recent Abx. Negative COVID tests. No chest pain or dyspnea. No new or changed meds. No known sick contacts. No recent travel. No PMH except unexplained, self-resolved ATN in his 20s that required hospitalization and kidney biopsy. Resolved headche. No neck pain. Unremarkable EKG. Sodium 128 (initial spurious value of 118), K mildly low. But elevated Alk Phos, AST, ALT, T bili. Normal lactate. Mildly elevated procalcitonin. ED attending discussed with hepatology inpatient monitoring but no need for transfer at this time.. Patient was vaccinated remotely for hepatitis a and B in the CT of the abdomen and pelvis negative for biliary obstruction or dilation there is mild periportal edema edema consistent with mild acute hepatitis Peak bilirubin 4.5 de-escalated to 4.1 Respiratory viral panel negative Hospital course: 08/25: Patient actually started feeling better in the morning but then in the early afternoon by 2:00 p.m. patient has severe headache worsened by light examination patient does not have nuchal rigidity or meningismus 08/26: Patient remains febrile without significant improvement in liver enzymes and has now developed a new rash localizing to the forehead, worsening his bilateral cheek rosacea and involving the anterior neck and upper chest. His headache has resolved. The platelets have risen slightly to 95. The BNP is normal. The total bilirubin has dropped from 4.1 down to 3.2. The AST has increased up to 81 and the ALT has increased up to 115. The alkaline phosphatase is now 164, also rising. The urine culture and the bruit culture from 08/24 remain negative. His hepatitis a/B/C studies have been negative. EBV virus has been negative. CMV is pending. Leptospirosis PCR, Shaheed mountain spotted fever, Borrelia, HIV, CMV, RPR and ferritin are all pending to rule out appropriate infectious causes of this liver/rash/febrile illness and to rule out Still's disease or other autoimmune process. This was discussed with Infectious Disease over the phone in significant detail. We have been unable to identify and he is unable to recall any significant risk factors for HIV, Lyme disease, leptospirosis, RMSF, etc. He is generally feeling better today. The CT of the abdomen is reviewed, it showed only mild periportal edema. Review of systems: No cough shortness for breath nausea vomiting or diarrhea No chest pain palpitations No urinary symptom No paresthesia paresis No Loss of conscious Positive for rash and fever. Physical exam: Middle-aged male appearing well-developed no acute distress HEENT unremarkable Neck no JVD. No nuchal rigidity. Heart rate and rhythm regular without murmur Lungs clear bilaterally Abdomen soft, bowel sounds positive, nontender, no organomegaly Extremities have no ankle edema Neurologic exam is normal. Rash is morbilliform in appearance involving the middle of the upper chest, anterior neck, bilateral cheeks and forehead. Assessment and plan: Viral syndrome with elevation of bilirubin and transaminases * Supportive care with IV fluid * There may be an element of viral meningitis as well as hepatitis but headache has resolved and he does not have nuchal rigidity. * New rash developed on 08/26. * EBV virus, hepatitis a, C, B all negative. CMV is pending. * Headache and other pains have resolved. * Discussed extensively with ID on 08/26. Additional testing to rule out Still's disease, HIV, RMSF, Borrelia, leptospirosis, syphilis and CMV. * IV hydration to correct hyponatremia, up to 133 on 08/26 History of gout: * Continue allopurinol * Colchicine if needed for flare Hypertension: * Holding losartan due to hyponatremia * Continue metoprolol and amlodipine DVT prophylaxis: * Not indicated patient is ambulatory Code status: * Full code Disposition: * Inpatient expect up to 3 days hospitalization Exam Vital Signs (past 8 hours): - 08/26/25 03:00 Temperature 101.1 F H Pulse Rate 90 Respiratory Rate 20 Blood Pressure 119/70 Pulse Oximetry 97 Oxygen Flow Rate 0 Oxygen Delivery Method Room Air Oxygen Flow Rate 0 Objective Labs 08/25/25 09:00 08/26/25 04:30 Labs: Laboratory Results - last 24 hr 08/25/25 08/25/25 08/26/25 00:22 09:00 04:30 WBC 4.4 L RBC 4.16 L Hgb 12.7 L Hct 35.9 L MCV 86.3 MCH 30.6 MCHC 35.5 RDW 13.3 Plt Count 95 L Neut % (Auto) 85.2 H Lymph % (Auto) 4.9 L [place] % (Auto) 9.1 Eos % (Auto) 0.5 L Baso % (Auto) 0.3 Neut # (Auto) 3800 Lymph # (Auto) 200 L [place] # (Auto) 400 Eos # (Auto) 0 Baso # (Auto) 0 PT 10.8 INR 1.0 APTT 27 Sodium 131 L 133 L Potassium 4.0 3.7 Chloride 99 102 Carbon Dioxide 25 24 BUN 6 L 3 L Creatinine 0.61 L 0.63 L Estimated GFR > 60 > 60 BUN/Creatinine Ratio 9.8 4.8 L Glucose 156 H 135 H Calcium 8.5 8.3 L Magnesium 2.1 Total Bilirubin 4.1 H 3.2 H AST 77 H 81 H ALT 107 H 115 H Alkaline Phosphatase 152 H 164 H Total Protein 6.7 6.4 Albumin 3.8 3.4 L Globulin 2.9 3.0 Albumin/Globulin Ratio 1.3 1.1 Hepatitis A IgM Ab Negative Hep Bs Antigen Negative Hep B Core IgM Ab Negative Hepatitis C Antibody Non reactive Hep C Ab Signal/Cutoff Comment PFSH Social History household members: spouse Smoking Status: Former smoker Assessment & Plan Time-Based Coding :: [TOTAL MINUTES] spent with patient and on the chart (including review of chart, obtaining history, exam, reviewing outside data, placing orders, documenting exam and treatment plan, and counseling patient) on [DATE]. Quality VTE Deep Vein Thrombosis/Pulmonary Embolism Present on Admission: No
[2025-08-26 07:45] VITALS: BP 130/67; PULSE 84; RESP 18; TEMP 38.7; O2SAT 98
[2025-08-26 11:25] VITALS: BP 135/85; PULSE 86; RESP 19; TEMP 37.3; O2SAT 99
[2025-08-26] MEDS: DOXYCYCLINE HYCLATE 100 MG TABLET PO ×2 (12:11→20:14)
--- NOTE | 2025-08-26 15:39 | PC.NURSE ---
Patient complained of vision changes, Dr. Pickett is aware. Patient is resting comfortably and tolerating his ivf.
--- NOTE | 2025-08-26 15:46 | CM.DPC ---
DCP Cont: Per MD, pt's hepatitis panels came back negative and headache has resolved but pt with fever of 101 and increased liver enzymes and labs not quite normal and unclear etiology. Awaiting futher labs and may consult ID MD to determine source. Not yet stable for discharge. Radha Verma MSW
[2025-08-26 15:57] LABS: Procalcitonin 0.245 ng/mL (<0.5)
[2025-08-26 16:00] VITALS: BP 132/83; PULSE 102; RESP 20; TEMP 37.9; O2SAT 98
[2025-08-26 16:41] VITALS: TEMP 37.9
[2025-08-26] MEDS: IBUPROFEN 400 MG TABLET PO (16:41)
[2025-08-26 16:53] LABS: Ferritin 282 ng/mL (18-464)
[2025-08-26 18:13] VITALS: BP 120/74; PULSE 92; RESP 17; TEMP 37.3; O2SAT 98
[2025-08-27] VITALS: BP 119/80; PULSE 67; RESP 16; TEMP 37; O2SAT 99
[2025-08-27 04:00] VITALS: BP 120/77; PULSE 75; RESP 18; TEMP 37.1; O2SAT 100
[2025-08-27 05:46] LABS: Add Manual Diff / Slide Review NO; Hematocrit 34.6 % (41-53); Hemoglobin 12.0 g/dL (13.5-17.5); Lymphocytes Absolute Auto 800 /uL (1100-4500); Mean Corpuscular HGB Conc 34.8 % (30-36); Mean Corpuscular Hemoglobin 30.5 PG (26-34); Mean Corpuscular Volume 87.6 fL (80-100); Platelet Count 162 X10^3/uL (150-400)
[2025-08-27 05:48] LABS: Alanine Aminotransferase 121 IU/L (<50); Albumin 3.6 g/dL (3.5-5.0); Albumin Globulin Ratio 1.2 (1.0-2.8); Alkaline Phosphatase 175 U/L (38-126); Blood Urea Nitrogen 5 mg/dL (9-20); Calcium 8.7 mg/dL (8.4-10.2); Carbon Dioxide 25 mmol/L (22-32); Chloride 104 mmol/L (98-107); Estimated Glomerular Filt Rate > 60 mL/min (>60); Globulin 3.1 g/dL (1.7-4.1); Glucose 111 mg/dL (70-99); HEMOLYSIS < 15 (0-50); Potassium 3.7 mmol/L (3.4-5.1); Sodium 137 mmol/L (137-145); Total Protein 6.7 g/dL (6.3-8.2)
--- NOTE | 2025-08-27 07:13 | P.DS_ITS ---
History of Present Illness History of Present Illness Date Patient Seen: 08/27/25 Chief complaint: fever x 5 days Narrative: 50M with PMH of gout, HTN presents with 5 days muscle aches, Tmax 103F, malaise, appetite loss. No abdominal pain, nausea, vomiting, diarrheae, bleeding. No recent Abx. Negative COVID tests. No chest pain or dyspnea. No new or changed meds. No known sick contacts. No recent travel. No PMH except unexplained, self- resolved ATN in his 20s that required hospitalization and kidney biopsy. Resolved headche. No neck pain. Unremarkable EKG. Sodium 128 (initial spurious value of 118), K mildly low. But elevated Alk Phos, AST, ALT, T bili. Normal lactate. Mildly elevated procalcitonin. ED attending discussed with hepatology inpatient monitoring but no need for transfer at this time. Discharge Providers Provider Date of admission: 08/25/25 02:13 Discharge Date: 08/27/25 Discharge provider: Yessy Pickett MD Summary Hospital Course Hospital Course: Fevers rigors chills malaise elevated bilirubin/LFT 08/25: (per nighttime hospitalist) 50M with PMH of gout, HTN presents with 5 days muscle aches, Tmax 103F, malaise, appetite loss. No abdominal pain, nausea, vomiting, diarrheae, bleeding. No recent Abx. Negative COVID tests. No chest pain or dyspnea. No new or changed meds. No known sick contacts. No recent travel. No PMH except unexplained, self-resolved ATN in his 20s that required hospitalization and kidney biopsy. Resolved headche. No neck pain. Unremarkable EKG. Sodium 128 (initial spurious value of 118), K mildly low. But elevated Alk Phos, AST, ALT, T bili. Normal lactate. Mildly elevated procalcitonin. ED attending discussed with hepatology inpatient monitoring but no need for transfer at this time. Patient was vaccinated remotely for hepatitis a and B in the 90s. CT of the abdomen and pelvis negative for biliary obstruction or dilation there is mild periportal edema edema consistent with mild acute hepatitis. Peak bilirubin 4.5 de-escalated to 4.1. Respiratory viral panel negative Hospital course: 08/25: Patient actually started feeling better in the morning but then in the early afternoon by 2:00 p.m. patient has severe headache worsened by light examination patient does not have nuchal rigidity or meningismus 08/26: Patient remains febrile without significant improvement in liver enzymes and has now developed a new rash localizing to the forehead, worsening his bilateral cheek rosacea and involving the anterior neck and upper chest. His headache has resolved. The platelets have risen slightly to 95. The BNP is normal. The total bilirubin has dropped from 4.1 down to 3.2. The AST has increased up to 81 and the ALT has increased up to 115. The alkaline phosphatase is now 164, also rising. The urine culture and the bruit culture from 08/24 remain negative. His hepatitis a/B/C studies have been negative. EBV virus has been negative. CMV is pending. Leptospirosis PCR, Shaheed mountain spotted fever, Borrelia, HIV, CMV, RPR and ferritin are all pending to rule out appropriate infectious causes of this liver/rash/febrile illness and to rule out Still's disease or other autoimmune process. This was discussed with Infectious Disease over the phone in significant detail. We have been unable to identify and he is unable to recall any significant risk factors for HIV, Lyme disease, leptospirosis, RMSF, etc. He is generally feeling better today. The CT of the abdomen is reviewed, it showed only mild periportal edema. 08/27: RPR is negative. Ferritin is normal. All other send outs including HIV, leptospirosis, etc. are going to be pending for several more days. Testing today rules out syphilis and Still's disease. It is not clear whether he is improving because of the doxycycline or in spite of it. Fevers have been gone for over 24 hours. Liver enzymes continue a mixed picture with total bilirubin down to 2.1 from 3.2, AST down to 75 and ALT up slightly to 121. The alkaline phosphatase is also up slightly to 175. The follow up procalcitonin was lower at 0.245. The rash is 50% improved. Viral syndrome with Rash, Fevers, headache, hyponatremia, elevation of bilirubin and transaminases * Supportive care with IV fluid: Resolving * He had a bad headache for only 1 day. No LP was done as he never had nuchal rigidity and by the next day all those symptoms resolved. * New rash developed on 08/26. * EBV virus, hepatitis a, C, B all negative. CMV is pending. * Discussed extensively with ID on 08/26. Additional testing to rule out Still's disease, HIV, RMSF, Borrelia, leptospirosis, syphilis and CMV remain pending at the time of discharge. * IV hydration to correct hyponatremia, up to 137 on 08/27 * Take doxycycline for 7 days. History of gout: * Continue allopurinol Hypertension: * Held losartan due to hyponatremia * Continue metoprolol and amlodipine, resume losartan at home We discussed that through the patient portal and with follow up with his PCP the results of the remaining send out labs will be coming back and available for him to view. He will take doxycycline for 7 days. He is given the name of ID, Dr. Del Castillo in [place] to also follow up with if significant abnormal results requiring further testing/treatment return. Status at Discharge Cognitive/behavioral status at discharge: at baseline, oriented Functional status at discharge: independent ambulation Overall status at discharge: patient is back to baseline Time Spent with Patient Time spent: Less than 30 minutes Exam Vital Signs (past 8 hours): - 08/27/25 00:00 08/27/25 04:00 Temperature 98.6 F 98.8 F Pulse Rate 67 75 Respiratory Rate 16 18 Blood Pressure 119/80 120/77 Pulse Oximetry 99 100 Oxygen Flow Rate 0 0 Oxygen Delivery Method Room Air Oxygen Flow Rate 0 Narrative Exam Narrative: Alert and oriented x3. No apparent distress. He is up and walking around the room and states he is feeling much better. Heart is regular rate and rhythm without murmur. Lungs are clear to auscultation bilaterally. Abdomen is soft, nontender. Rash on the upper chest/neck/face is at least 50% and has not spread beyond the borders noted yesterday. Objective Labs 08/27/25 05:16 08/27/25 05:16 Labs: Laboratory Results - last 24 hr 08/26/25 08/26/25 08/27/25 04:30 15:10 05:16 WBC 6.5 RBC 3.95 L Hgb 12.0 L Hct 34.6 L MCV 87.6 MCH 30.5 MCHC 34.8 RDW 13.8 Plt Count 162 Neut % (Auto) 77.0 H Lymph % (Auto) 12.2 L [place] % (Auto) 8.8 Eos % (Auto) 1.7 L Baso % (Auto) 0.3 Neut # (Auto) 5100 Lymph # (Auto) 800 L [place] # (Auto) 600 Eos # (Auto) 100 Baso # (Auto) 0 Sodium 137 Potassium 3.7 Chloride 104 Carbon Dioxide 25 BUN 5 L Creatinine 0.63 L Estimated GFR > 60 BUN/Creatinine Ratio 7.9 Glucose 111 H Calcium 8.7 Ferritin 282 Total Bilirubin 2.1 H AST 75 H ALT 121 H Alkaline Phosphatase 175 H Total Protein 6.7 Albumin 3.6 Globulin 3.1 Albumin/Globulin Ratio 1.2 Procalcitonin 0.245 RPR w/Rflx to Titer Non reactive PFSH Social History household members: spouse Smoking Status: Former smoker Discharge Plan Discharge Plan Patient Disposition: Home Provider Discharge Comment: Follow up with your [place] PCP in one week. Nursing Discharge Comment: Your pending labs will be visible to your primary care provider once resulted but you can also access these records with a [facility] patient portal. Please see [facility] website to set up a patient portal. [email or web address] Discharge orders & Medications Prescriptions: New doxycycline hyclate 100 mg Tablet 100 mg PO BID Qty: 14 0RF Continued allopurinol 100 mg tablet 100 mg PO DAILY metoprolol succinate 25 mg tablet extended release 24 hr 25 mg PO BID amlodipine 5 mg tablet 5 mg PO DAILY losartan [Cozaar] 100 mg tablet 100 mg PO DAILY Diet/Activity/Treatments Diet: Regular Visit Report/Discharge Packet Instructions: DI for Hyponatremia Stand Alone Forms: Patient Portal/API, Stroke Signs & Symptoms Quality VTE Deep Vein Thrombosis/Pulmonary Embolism Present on Admission: No
[2025-08-27 08:00] VITALS: BP 134/91; PULSE 74; RESP 16; TEMP 37.6; O2SAT 98
[2025-08-27] MEDS: DOXYCYCLINE HYCLATE 100 MG TABLET PO (10:07)
[2025-08-27 10:16] VITALS: O2SAT 96
--- NOTE | 2025-08-27 11:28 | PC.NURSE ---
Pt agreeable to discharge. IV discontinued. Telemetry removed. Pt instructed to make follow up with primary care provider, pt already sent portal message to PCP. Educated pt on labs that were sent out, verified with lab these labs were sent to [facility]. Pt given information on [facility] patient portal. Pt educated on stroke s/s, hyponatremia, and labs that were sent out that are still pending. Pt educated on worsening symptoms. Pt dressed self, called spouse for ride. Care ongoing.
[2025-08-27 14:40] LABS: Osmolality, Serum 243 mOsmol/kg (275-295)
[2025-08-28 18:07] LABS: CMV DNA, Quant Real Time PCR Negative (Negative)
[2025-08-28 20:36] LABS: HIV 1 RNA Non Reactive (Non Reactive); HIV 2 RNA Non Reactive (Non Reactive)
== END 2025-08-27 11:42 | disposition home or self-care (01) | DRG 866 ==
LOC: ED 08-25 02:13 → AC 08-25 02:14
PROVIDERS: Family Medicine; Internal Medicine; Admitting Provider Internal Medicine; Emergency Provider Emergency Medicine; Family Provider Family Medicine; Referring Provider Emergency Medicine; Visit Provider Internal Medicine
DX: B34.9 Viral infection, unspecified (principal); E87.1 Hypo-osmolality and hyponatremia; I10 Essential (primary) hypertension; D69.6 Thrombocytopenia, unspecified; E87.6 Hypokalemia; M10.9 Gout, unspecified; R21 Rash and other nonspecific skin eruption; E80.6 Other disorders of bilirubin metabolism; R74.01 Elevation of levels of liver transaminase levels; R51.9 Headache, unspecified; Z87.891 Personal history of nicotine dependence
CPT/HCPCS: 36415; 71045; 74177; 80053; 80074; 80320; 80329; 81003; 81015; 82248; 82728; 82977; 83605; 83690; 83735; 83930; 83935; 84145; 84443; 85025; 85610; 85730; 86318; 86592; 87040; 87086; 87497; 87535; 87536; 87538; 87633; 93005; 96361; 96374; 96375; 99284; 99291; G0480; J1171; J1885; J2405; J7030; Q9967

== ENCOUNTER → 2025-09-14 08:21 | Outpatient (CLI) | payer OTHER, SELFPAY ==
[2025-08-25 03:35] VITALS: BMI 27.8
--- NOTE | 2025-09-14 08:24 | DI.RAD.S_ITS ---
PROCEDURE: XR KUB INDICATIONS: Abdominal pain, possible constipation TECHNIQUE: One view of the abdomen acquired. COMPARISON: None. FINDINGS: Surgical changes and devices: None. Bowel: Bowel gas pattern is normal. Moderate colonic stool load. Soft tissues: No suspicious abdominal calcifications. Visualized solid organ contours appear normal in size. Bones: No suspicious bony lesions. IMPRESSION: Moderate colonic stool load. Dictated by: Shaheed Albert M.D. on 09/14/2025 at 10:01 Approved by: Shaheed Albert M.D. on 09/14/2025 at 10:01
[2025-09-14 08:53] LABS: Add Manual Diff / Slide Review NO; Hematocrit 40.4 % (41-53); Hemoglobin 14.2 g/dL (13.5-17.5); Lymphocytes Absolute Auto 1400 /uL (1100-4500); Mean Corpuscular HGB Conc 35.1 % (30-36); Mean Corpuscular Hemoglobin 30.6 PG (26-34); Mean Corpuscular Volume 87.4 fL (80-100); Platelet Count 219 X10^3/uL (150-400)
[2025-09-14 09:00] LABS: Ammonia (NH3) 12 umol/L (9-30)
[2025-09-14 09:01] LABS: Hemoglobin A1C% w Est Avg Glu 5.3 % (4.0-6.0)
[2025-09-14 09:45] LABS: Alanine Aminotransferase 28 IU/L (<50); Albumin 4.7 g/dL (3.5-5.0); Albumin Globulin Ratio 1.6 (1.0-2.8); Alkaline Phosphatase 93 U/L (38-126); Blood Urea Nitrogen 11 mg/dL (9-20); Calcium 9.8 mg/dL (8.4-10.2); Carbon Dioxide 26 mmol/L (22-32); Chloride 104 mmol/L (98-107); Cholesterol 199 mg/dL (140-199); Estimated Glomerular Filt Rate > 60 mL/min (>60); Globulin 2.9 g/dL (1.7-4.1); Glucose 101 mg/dL (70-99); HDL Cholesterol 52 mg/dL (40-60); HEMOLYSIS < 15 (0-50); Iron 81 ug/dL (49-181); Potassium 4.4 mmol/L (3.4-5.1); Sodium 139 mmol/L (137-145); Total Protein 7.6 g/dL (6.3-8.2); Triglycerides 92 mg/dL (35-150); Uric Acid 5.4 mg/dL (3.5-8.5)
[2025-09-14 09:55] LABS: Percent Iron Saturation 22 % (20-50); Total Iron Binding Capacity 376 ug/dL (261-462); Transferrin 323 mg/dL (206-381)
[2025-09-14 10:02] LABS: Vitamin D 25 Hydroxy (D3) 62.8 ng/mL (30.0-100.0)
[2025-09-14 10:20] LABS: Ferritin 118 ng/mL (18-464)
[2025-09-14 10:34] LABS: Vitamin B12 Reflex MMA if <400 467 pg/mL (239-931)
[2025-09-14 10:51] LABS: Folate 9.1 ng/mL (2.76-20.0)
== END ==
PROVIDERS: Family Provider Family Medicine; PCP Family Medicine; Referring Provider Family Medicine; Visit Provider Family Medicine
DX: R10.10 Upper abdominal pain, unspecified (principal); B17.9 Acute viral hepatitis, unspecified; E87.1 Hypo-osmolality and hyponatremia; R41.89 Other symptoms and signs involving cognitive functions and awareness; R74.8 Abnormal levels of other serum enzymes; Z13.220 Encounter for screening for lipoid disorders; Z13.1 Encounter for screening for diabetes mellitus; I10 Essential (primary) hypertension; M10.9 Gout, unspecified
CPT/HCPCS: 36415; 74018; 80053; 80061; 82043; 82140; 82306; 82570; 82607; 82728; 82746; 83036; 83540; 83550; 84550; 85025

== ENCOUNTER → 2025-10-06 09:11 | Outpatient (CLI) | payer OTHER, SELFPAY ==
[2025-08-25 03:35] VITALS: BMI 27.8
--- NOTE | 2025-10-06 09:12 | DI.MRI.S_ITS ---
PROCEDURE: MR HEAD/BRAIN WO CON INDICATIONS: Hx hyponatremia, persistent brain fog, vertigo, GÓMEZ TECHNIQUE: Noncontrast axial T1 spin echo, axial T2 fast spin echo, sagittal and axial FLAIR, coronal T2 fast spin echo, axial gradient echo, axial diffusion and ADC through the brain. COMPARISON: None. FINDINGS: Image quality: Excellent. CSF Spaces: Basal cisterns are patent. No extra-axial fluid collections. Ventricles are normal in size and shape. Brain: No intracranial masses or hemorrhage. Few punctate foci of T2/FLAIR hyperintense signal within the supratentorial white matter is nonspecific and likely within normal limits for age. Daigle/white matter interface is normal. Brainstem appears normal. Diffusion-weighted images demonstrate no acute infarct. No chronic ischemic insults. Normal intravascular flow voids are present. Skull and face: Calvarium has normal marrow signal. Orbits appear normal. Sinuses: Sinuses and mastoids are clear. IMPRESSION: No acute intracranial abnormalities. No cause for patient's symptoms is identified. Approved by: Vivek Pacheco M.D. on 10/07/2025 at 9:53
== END ==
LOC: MRI 09:12
PROVIDERS: PCP Family Medicine; Referring Provider Family Medicine; Visit Provider Family Medicine
DX: B17.9 Acute viral hepatitis, unspecified (principal); E87.1 Hypo-osmolality and hyponatremia; R41.89 Other symptoms and signs involving cognitive functions and awareness
CPT/HCPCS: 70551

== ENCOUNTER → 2025-10-14 12:07 | Outpatient (CLI) | payer OTHER, SELFPAY ==
[2025-08-25 03:35] VITALS: BMI 27.8
[2025-10-14 12:23] LABS: Hematocrit 39.6 % (41-53); Hemoglobin 13.8 g/dL (13.5-17.5); Mean Corpuscular HGB Conc 34.9 % (30-36); Mean Corpuscular Hemoglobin 30.3 PG (26-34); Mean Corpuscular Volume 87.0 fL (80-100); Platelet Count 183 X10^3/uL (150-400)
[2025-10-14 13:51] LABS: Alanine Aminotransferase 26 IU/L (<50); Albumin 4.7 g/dL (3.5-5.0); Albumin Globulin Ratio 1.7 (1.0-2.8); Alkaline Phosphatase 82 U/L (38-126); Blood Urea Nitrogen 9 mg/dL (9-20); Calcium 9.7 mg/dL (8.4-10.2); Carbon Dioxide 29 mmol/L (22-32); Chloride 104 mmol/L (98-107); Creatine Kinase 448 U/L (55-170); Estimated Glomerular Filt Rate > 60 mL/min (>60); Globulin 2.8 g/dL (1.7-4.1); Glucose 92 mg/dL (70-99); HEMOLYSIS < 15 (0-50); Magnesium 1.9 mg/dL (1.6-2.3); Potassium 4.3 mmol/L (3.4-5.1); Sodium 141 mmol/L (137-145); Total Protein 7.5 g/dL (6.3-8.2)
[2025-10-14 13:59] LABS: Troponin I < 0.012 ng/mL (0.01-0.034)
== END ==
PROVIDERS: PCP Family Medicine; Referring Provider Family Medicine; Visit Provider Family Medicine
DX: F41.9 Anxiety disorder, unspecified (principal)
CPT/HCPCS: 36415; 80053; 82550; 83735; 84484; 85027